=== PATIENT | male | born 1955 | race Caucasian/White ===

== ENCOUNTER 2017-08-21 09:27 | Outpatient (CLI) | payer BC ==
--- NOTE | 2017-08-21 10:22 | RAD ---
LEFT ELBOW RADIOGRAPHS 4 VIEWS: DATE: 08/21/17. PROVIDED CLINICAL HISTORY: Left elbow pain. FINDINGS: There is a 1.2 cm lucent lesion within the radial aspects of the distal humeral metaphyseal region. This demonstrates potentially partially sclerotic margins, though this is incompletely characterized radiographically. No additional lytic lesions are seen. There is a probable nondisplaced fracture i nvolving the base of the olecranon. There is overlying soft tissue swelling. There is no evidence f or elbow joint capsular distention. IMPRESSION: 1. Findings compatible with nondisplaced olecranon fracture. 2. Apparent lytic lesion within the distal humerus. Metastatic disease and myeloma could be conside red. Correlation with whole body bone scan is recommended. CODE T POS: JASPREET
== END 2017-08-21 09:28 | disposition home or self-care (01) ==
LOC: TBSIIMAG 09:27
PROVIDERS: ATTEND Psychiatry & Neurology Neurology
DX: M25.522 Pain in left elbow (principal); M89.9 Disorder of bone, unspecified

== ENCOUNTER 2017-08-22 11:35 | Emergency (ER) | payer BC | END 2017-08-22 13:20 | disposition home or self-care (01) | LOC: ERS 11:35 | DX: M70.32 Other bursitis of elbow, left elbow (principal); I10 Essential (primary) hypertension | CPT/HCPCS: 99283 ==

== ENCOUNTER 2019-07-24 19:18 | Emergency (ER) | payer MEDICARE ==
[2019-07-24] MEDS ORDERED: Morphine 4 MG/ML VIAL ONE (20:00)
== END 2019-07-24 21:40 | disposition home or self-care (01) ==
LOC: ERS 19:18
DX: S12.9XXA Fracture of neck, unspecified, initial encounter (principal); F03.90 Unspecified dementia, unspecified severity, without behavioral disturbance, psychotic disturbance, mood disturbance, and anxiety; I10 Essential (primary) hypertension; F17.210 Nicotine dependence, cigarettes, uncomplicated; W18.30XA Fall on same level, unspecified, initial encounter
CPT/HCPCS: 96374; J2270

== ENCOUNTER 2019-08-12 09:29 | Outpatient (CLI) | payer MEDICARE, BC ==
--- NOTE | 2019-08-12 13:01 | RAD ---
CERVICAL SPINE 4 VIEWS: Date: 08/12/2018 COMPARISON: None. HISTORY: Fall, pain. FINDINGS: The patient is imaged in a cervical collar. Anterior diskectomy and fusion hardware noted at C4-5/C5- 6/C6-7. There is no anterolisthesis or retrolisthesis seen. There is disc space narrowing with anteri or osteophyte formation at the C3-4 level. There is mild degenerative change at the atlantoaxial inte rspace. There is mild prevertebral soft tissue prominence anterior to the fusion plate at the C7 leve l, similar when compared to 07/24/2019 CT exam. IMPRESSION: Postoperative and degenerative change as detailed above. No displaced fracture. If there is clinical concern for radio-occult fracture, CT examination of the cervical spine advised. POS: [facility]
== END 2019-08-12 09:30 | disposition home or self-care (01) ==
LOC: TBSIIMAG 09:29
PROVIDERS: ATTEND Surgery
DX: S12.9XXA Fracture of neck, unspecified, initial encounter (principal); M47.812 Spondylosis without myelopathy or radiculopathy, cervical region; Z98.890 Other specified postprocedural states
CPT/HCPCS: 72040

== ENCOUNTER 2019-09-07 13:03 | Outpatient (CLI) | payer MEDICARE, BC ==
--- NOTE | 2019-09-07 13:47 | RAD ---
4 views of cervical spine: 09/07/2019 COMPARISON: 08/12/2019 HISTORY: Prior cervical spine surgery FINDINGS: Anterior discectomy and fusion hardware is present at the C4-5/C5-6/C6-7 level. No evidence for hardware failure. There is disc space narrowing with anterior osteophyte formation at C3-4. There is mild anterolisthesis of C3 on C4 measuring approximately [address] may be beneficial if there is clinical concern for radio occult fracture. IMPRESSION: Stable cervical spine radiographs.
== END 2019-09-07 13:04 | disposition home or self-care (01) ==
LOC: TBSIIMAG 13:03
PROVIDERS: ATTEND Surgery
DX: M54.2 Cervicalgia (principal)
CPT/HCPCS: 72040

== ENCOUNTER 2020-12-07 08:48 | Outpatient (CLI) | payer MEDICARE, BC ==
[2020-12-07 09:29] LABS: Estimated GFR-MDRD - POC Greater than 90
[2020-12-07] MEDS ORDERED: Magnevist 469MG/ML 20 ML VIAL ONE (11:22)
== END 2020-12-07 08:49 | disposition home or self-care (01) ==
LOC: BICMRI 08:48
PROVIDERS: ATTEND Psychiatry & Neurology Neurology
DX: G31.1 Senile degeneration of brain, not elsewhere classified (principal); I67.82 Cerebral ischemia
CPT/HCPCS: 70553; 82565; A9579

== ENCOUNTER 2023-02-03 19:49 | Emergency (ER) | payer MEDICARE ==
[2023-02-03 21:53] LABS: #Basophils 0.1 thou/uL (0.0-0.2); #Monocytes 0.4 thou/uL (0.11-0.59); #Neutrophils 4.3 thou/uL (1.40-6.50); %Basophils 0.9 % (0.0-1.0); %Eosinophils 0.4 % (0.0-10.0); %Lymphocytes 13.2 % (21.0-51.0); %Monocytes 7.6 % (0.0-10.0); %Neutrophils 77.7 % (42.0-75.0); Hemoglobin 14.3 g/dL (14.0-18.0); Mean Corpuscular HGB CONC 35.4 g/dL (32.0-36.0); Mean Corpuscular Hemoglobin 34.5 pg (27.0-31.0); Mean Corpuscular Volume 97.6 fl (78.0-98.0); Mean Platelet Volume 9.4 fL (7.4-10.4); Platelet Count 255 10x3/uL (130-400); RBC Distribution Width 12.9 % (11.5-14.5); Red Blood Cell (RBC) Count 4.14 mill/uL (4.70-6.10); White Blood Cell (WBC) Count 5.5 10x3/uL (4.8-10.8)
[2023-02-03 22:01] LABS: Bacteria/HPF None Seen HPF (None Seen); Bilirubin Negative (Negative); Blood, Urine Negative (Negative); CAUTI Indications for Culture Alt mental st,lethar; Clarity Clear (Clear); Glucose, Urine (Dipstick) Normal (Negative); Ketone, Urine Negative (Negative); Leukocyte Negative Leu/uL (Negative); Mucous/LPF Rare LPF (<2+); Nitrite Negative (Negative); Protein, Urine (Dipstick) Negative (Neg-Trace); RBC/HPF 0-3 HPF (0-3); Specific Gravity, Urine 1.008 (1.002-1.036); Squamous Epithelial 0-3 HPF (0-3); Urobilinogen Normal mg/dL (Less than 2); WBC/HPF 0-3 HPF (0-3); pH, Urine 5.5 (5.0-9.0)
[2023-02-03 22:04] LABS: Urine Culture Reflex No No
[2023-02-03 22:05] LABS: Amphetamine Not Detected (NotDetected); Barbiturates Screen Not Detected (NotDetected); Benzodiazepine Screen Not Detected (NotDetected); Cocaine Metabolite Screen Not Detected (NotDetected); Methadone Not Detected (NotDetected); Methamphetamine Not Detected (NotDetected); Opiate Screen Not Detected (NotDetected); Oxycodone Screen Not Detected (NotDetected); Phencyclidine (PCP) Not Detected (NotDetected); THC/Cannabinoid Screen Not Detected (NotDetected); Tricyclic Screen Not Detected (NotDetected)
[2023-02-03 22:17] LABS: ALT (SGPT) 56 U/L (8-55); AST (SGOT) 166 U/L (5-34); Acetaminophen Less than 10 mcg/mL (10.0-30.0); Albumin 3.7 g/dL (3.4-4.8); Alkaline Phosphatase 83 U/L (40-110); Anion Gap 21 mmol/L (10-20); BUN (Urea Nitrogen) 4 mg/dL (8.4-25.7); Bilirubin, Total 0.6 mg/dL (0.2-1.2); Calc. Creatinine Clearance 0 mL/min (70-130); Calcium 8.5 mg/dL (7.8-10.44); Carbon Dioxide 21 mmol/L (23-31); Chloride 106 mmol/L (98-107); Estimated GFR 100; Globulin 2.8 g/dL (2.4-3.5); Glucose 79 mg/dL (80-115); Potassium 3.4 mmol/L (3.5-5.1); Protein, Total 6.5 g/dL (5.8-8.1); Salicylate Less than 8.0 mg/dL (15.0-30.0); Sodium 145 mmol/L (136-145)
[2023-02-03 22:22] LABS: Prothrombin Time 13.2 sec (12.0-14.7)
[2023-02-03] MEDS ORDERED: Potassium Chloride 20 MEQ TAB ONE (22:37)
== END 2023-02-03 23:12 | disposition home or self-care (01) ==
LOC: ERS 19:49
DX: S09.90XA Unspecified injury of head, initial encounter (principal); S73.101A Unspecified sprain of right hip, initial encounter; F10.129 Alcohol abuse with intoxication, unspecified; W18.30XA Fall on same level, unspecified, initial encounter; Y90.6 Blood alcohol level of 120-199 mg/100 ml; Z87.891 Personal history of nicotine dependence
CPT/HCPCS: 70450; 71045; 72125; 80053; 80306; 80307; 81001; 84484; 85025; 85610; 85730; 93005; 96361; 96365; J3411

== ENCOUNTER 2023-02-09 11:32 | Inpatient (IN) | payer MEDICARE ==
[2023-02-09 12:57] LABS: #Eosinphils 0.1 thou/uL (0.0-0.7); #Monocytes 0.3 thou/uL (0.11-0.59); #Neutrophils 2.4 thou/uL (1.40-6.50); %Basophils 0.5 % (0.0-1.0); %Eosinophils 2.2 % (0.0-10.0); %Lymphocytes 32.9 % (21.0-51.0); %Monocytes 6.5 % (0.0-10.0); %Neutrophils 57.4 % (42.0-75.0); Hemoglobin 12.9 g/dL (14.0-18.0); Mean Corpuscular HGB CONC 34.9 g/dL (32.0-36.0); Mean Corpuscular Hemoglobin 34.6 pg (27.0-31.0); Mean Corpuscular Volume 99.2 fl (78.0-98.0); Mean Platelet Volume 9.8 fL (7.4-10.4); Platelet Count 199 10x3/uL (130-400); Red Blood Cell (RBC) Count 3.73 mill/uL (4.70-6.10); White Blood Cell (WBC) Count 4.1 10x3/uL (4.8-10.8)
[2023-02-09 13:27] LABS: Acetaminophen Less than 10 mcg/mL (10.0-30.0); Alcohol 255.4 mg/dL (Less than 10); Salicylate Less than 8.0 mg/dL (15.0-30.0)
[2023-02-09 13:30] LABS: ALT (SGPT) 46 U/L (8-55); AST (SGOT) 78 U/L (5-34); Albumin 3.5 g/dL (3.4-4.8); Alkaline Phosphatase 77 U/L (40-110); Anion Gap 17 mmol/L (10-20); BUN (Urea Nitrogen) 4 mg/dL (8.4-25.7); Bilirubin, Total 0.3 mg/dL (0.2-1.2); Calc. Creatinine Clearance 0 mL/min (70-130); Calcium 8.3 mg/dL (7.8-10.44); Carbon Dioxide 21 mmol/L (23-31); Chloride 105 mmol/L (98-107); Estimated GFR 101; Globulin 2.5 g/dL (2.4-3.5); Glucose 129 mg/dL (80-115); Lipase 27 U/L (8-78); Sodium 140 mmol/L (136-145)
[2023-02-09 14:17] LABS: Amphetamine Not Detected (NotDetected); Barbiturates Screen Not Detected (NotDetected); Benzodiazepine Screen Not Detected (NotDetected); Cocaine Metabolite Screen Not Detected (NotDetected); Methadone Not Detected (NotDetected); Methamphetamine Not Detected (NotDetected); Opiate Screen Not Detected (NotDetected); Oxycodone Screen Not Detected (NotDetected); Phencyclidine (PCP) Not Detected (NotDetected); THC/Cannabinoid Screen Not Detected (NotDetected); Tricyclic Screen Not Detected (NotDetected)
[2023-02-09] MEDS ORDERED: Thiamine HCl 200 MG/2 ML VIAL SLOW IVP SCH (14:30)
[2023-02-09 14:39] LABS: Bacteria/HPF None Seen HPF (None Seen); Bilirubin Negative (Negative); Blood, Urine Negative (Negative); CAUTI Indications for Culture Dysuria,urgency,freq; Clarity Clear (Clear); Glucose, Urine (Dipstick) Normal (Negative); Ketone, Urine Negative (Negative); Leukocyte Negative Leu/uL (Negative); Nitrite Negative (Negative); Protein, Urine (Dipstick) Negative (Neg-Trace); RBC/HPF None Seen HPF (0-3); Specific Gravity, Urine 1.004 (1.002-1.036); Squamous Epithelial None Seen HPF (0-3); Urobilinogen Normal mg/dL (Less than 2); WBC/HPF None Seen HPF (0-3)
[2023-02-09 14:41] LABS: Urine Culture Reflex No No
[2023-02-09] MEDS ORDERED: Potassium Chloride 20 MEQ TAB ONE (15:06)
[2023-02-09 15:10] LABS: Magnesium 1.9 mg/dL (1.6-2.6)
[2023-02-09] MEDS ORDERED: Ondansetron PF 4 MG/2 ML Vial IVP PRN (15:12)
[2023-02-09] MEDS ORDERED: Calcium Carbonate 500 MG ChewTAB PO PRN (15:12)
[2023-02-09] MEDS ORDERED: Senokot S 8.6-50 MG TAB PO PRN (15:12)
[2023-02-09] MEDS ORDERED: Electrolyte Replacement Protocol 1 EACH FS SCH (15:15)
[2023-02-09] MEDS ORDERED: chlordiazePOXIDE HCl 25 MG CAP ONE (15:21)
[2023-02-09] MEDS ORDERED: chlordiazePOXIDE HCl 25 MG CAP PO SCH (15:30)
[2023-02-09] MEDS ORDERED: Electrolyte Replacement Protocol FS PRN (16:30)
[2023-02-09] MEDS ORDERED: Magnesium 2 GM/50 ML(in water) 2 GM in Premix Bag 1 BAG IVPB SCH (16:30)
[2023-02-09 20:03] VITALS: BMI 17.8
[2023-02-09] MEDS: Famotidine/PF 20 mg/2ml Vial SLOW IVP SCH (20:10)
[2023-02-09] MEDS: Montelukast Sodium 10 mg Tablet PO SCH (20:10)
[2023-02-09] MEDS: chlordiazePOXIDE HCl 5 MG CAP PO SCH ×2 (21:19→21:38)
[2023-02-09] MEDS ORDERED: Lorazepam 2 MG/ML VIAL ONE (21:34)
[2023-02-09] MEDS ORDERED: Lorazepam 2 MG/ML VIAL SLOW IVP SCH (21:45)
[2023-02-10] MEDS: Lorazepam 2 MG/ML VIAL SLOW IVP PRN ×4 (01:18→21:13)
[2023-02-10 06:52] LABS: #Eosinphils 0.1 thou/uL (0.0-0.7); #Monocytes 0.5 thou/uL (0.11-0.59); #Neutrophils 5.9 thou/uL (1.40-6.50); %Basophils 0.4 % (0.0-1.0); %Eosinophils 0.8 % (0.0-10.0); %Lymphocytes 9.9 % (21.0-51.0); %Monocytes 6.3 % (0.0-10.0); %Neutrophils 82.2 % (42.0-75.0); Hematocrit 36.4 % (42.0-52.0); Mean Corpuscular HGB CONC 35.7 g/dL (32.0-36.0); Mean Corpuscular Hemoglobin 34.8 pg (27.0-31.0); Mean Corpuscular Volume 97.3 fl (78.0-98.0); Mean Platelet Volume 10.1 fL (7.4-10.4); Platelet Count 185 10x3/uL (130-400); RBC Distribution Width 12.9 % (11.5-14.5); Red Blood Cell (RBC) Count 3.74 mill/uL (4.70-6.10); White Blood Cell (WBC) Count 7.2 10x3/uL (4.8-10.8)
[2023-02-10 07:17] LABS: Bilirubin, Direct 0.3 mg/dL (0.1-0.3); Iron 109 ug/dL (65-175); Iron 111 ug/dL (65-175); Iron Binding Capacity, Total 121 mcg/dL (261-462); Iron Binding Capacity, Total 135 mcg/dL (261-462)
[2023-02-10 07:19] LABS: ALT (SGPT) 57 U/L (8-55); AST (SGOT) 156 U/L (5-34); Albumin 3.4 g/dL (3.4-4.8); Alkaline Phosphatase 87 U/L (40-110); Anion Gap 16 mmol/L (10-20); BUN (Urea Nitrogen) 4 mg/dL (8.4-25.7); Bilirubin, Total 0.5 mg/dL (0.2-1.2); Calc. Creatinine Clearance 83 mL/min (70-130); Calcium 7.7 mg/dL (7.8-10.44); Carbon Dioxide 22 mmol/L (23-31); Chloride 104 mmol/L (98-107); Estimated GFR 100; Globulin 2.4 g/dL (2.4-3.5); Glucose 94 mg/dL (80-115); Magnesium 1.8 mg/dL (1.6-2.6); Potassium 3.3 mmol/L (3.5-5.1); Protein, Total 5.8 g/dL (5.8-8.1); Sodium 139 mmol/L (136-145)
[2023-02-10] MEDS ORDERED: Magnesium 2 GM/50 ML(in water) 2 GM in Premix Bag 1 BAG IVPB SCH (08:00)
[2023-02-10] MEDS ORDERED: PHOS-NAK 1 PKT PACK PO SCH (08:00)
[2023-02-10] MEDS ORDERED: Potassium Chloride 20 MEQ TAB PO SCH (08:00)
[2023-02-10] MEDS: Aspirin 81 mg Enteric Coated Tablet PO SCH (09:01)
[2023-02-10] MEDS: Folic Acid 1 MG TAB PO SCH (09:01)
[2023-02-10] MEDS: Lisinopril 5 MG TAB PO SCH (09:01)
[2023-02-10] MEDS: Famotidine/PF 20 mg/2ml Vial SLOW IVP SCH ×2 (09:01→20:22)
[2023-02-10] MEDS: Multivit, Therapeutic 1 TAB PO SCH (10:33)
[2023-02-10] MEDS: chlordiazePOXIDE HCl 5 MG CAP PO SCH (10:34)
[2023-02-10] MEDS ORDERED: Thiamine HCl 200 MG/2 ML VIAL SLOW IVP SCH (14:00)
[2023-02-10] MEDS: chlordiazePOXIDE HCl 25 MG CAP PO SCH ×2 (14:42→20:22)
[2023-02-10] MEDS: Montelukast Sodium 10 mg Tablet PO SCH (20:22)
[2023-02-11] MEDS: Lorazepam 2 MG/ML VIAL SLOW IVP PRN ×3 (01:11→09:18)
[2023-02-11 06:23] LABS: #Basophils 0.1 thou/uL (0.0-0.2); #Eosinphils 0.1 thou/uL (0.0-0.7); #Monocytes 0.5 thou/uL (0.11-0.59); %Basophils 0.9 % (0.0-1.0); %Eosinophils 2.2 % (0.0-10.0); %Lymphocytes 15.1 % (21.0-51.0); %Neutrophils 72.4 % (42.0-75.0); Hematocrit 39.9 % (42.0-52.0); Mean Corpuscular HGB CONC 32.6 g/dL (32.0-36.0); Mean Corpuscular Hemoglobin 34.4 pg (27.0-31.0); Mean Platelet Volume 10.8 fL (7.4-10.4); Platelet Count 154 10x3/uL (130-400); RBC Distribution Width 13.3 % (11.5-14.5); Red Blood Cell (RBC) Count 3.78 mill/uL (4.70-6.10); White Blood Cell (WBC) Count 5.6 10x3/uL (4.8-10.8)
[2023-02-11 06:34] LABS: Mean Corpuscular Volume 105.6 fl (78.0-98.0)
[2023-02-11 06:44] LABS: Anion Gap 12 mmol/L (10-20); BUN (Urea Nitrogen) Less than 4 mg/dL (8.4-25.7); Calc. Creatinine Clearance 95 mL/min (70-130); Calcium 8.5 mg/dL (7.8-10.44); Carbon Dioxide 25 mmol/L (23-31); Chloride 105 mmol/L (98-107); Estimated GFR 104; Glucose 93 mg/dL (80-115); Magnesium 1.9 mg/dL (1.6-2.6); Phosphorus 2.2 mg/dL (2.3-4.7); Potassium 3.4 mmol/L (3.5-5.1); Sodium 139 mmol/L (136-145)
[2023-02-11] MEDS ORDERED: Potassium Chloride 20 MEQ TAB PO SCH (08:00)
[2023-02-11] MEDS ORDERED: Magnesium 2 GM/50 ML(in water) 2 GM in Premix Bag 1 BAG IVPB SCH (08:00)
[2023-02-11] MEDS: Folic Acid 1 MG TAB PO SCH (09:14)
[2023-02-11] MEDS: Aspirin 81 mg Enteric Coated Tablet PO SCH (09:14)
[2023-02-11] MEDS: Famotidine/PF 20 mg/2ml Vial SLOW IVP SCH ×2 (09:14→20:16)
[2023-02-11] MEDS: Multivit, Therapeutic 1 TAB PO SCH (09:14)
[2023-02-11] MEDS: chlordiazePOXIDE HCl 25 MG CAP PO SCH ×3 (09:15→20:16)
[2023-02-11] MEDS: Lisinopril 5 MG TAB PO SCH (09:15)
[2023-02-11] MEDS: Lorazepam 1 MG TAB PO PRN (14:07)
[2023-02-11] MEDS: Montelukast Sodium 10 mg Tablet PO SCH (20:16)
[2023-02-12 06:43] LABS: ALT (SGPT) 46 U/L (8-55); AST (SGOT) 87 U/L (5-34); Albumin 3.2 g/dL (3.4-4.8); Alkaline Phosphatase 96 U/L (40-110); Anion Gap 16 mmol/L (10-20); BUN (Urea Nitrogen) 4 mg/dL (8.4-25.7); Bilirubin, Total 0.8 mg/dL (0.2-1.2); Calc. Creatinine Clearance 96 mL/min (70-130); Calcium 8.7 mg/dL (7.8-10.44); Carbon Dioxide 18 mmol/L (23-31); Chloride 107 mmol/L (98-107); Estimated GFR 104; Globulin 2.6 g/dL (2.4-3.5); Glucose 89 mg/dL (80-115); Magnesium 2.1 mg/dL (1.6-2.6); Phosphorus 4.7 mg/dL (2.3-4.7); Potassium 3.9 mmol/L (3.5-5.1); Protein, Total 5.8 g/dL (5.8-8.1); Sodium 137 mmol/L (136-145)
[2023-02-12] MEDS: Aspirin 81 mg Enteric Coated Tablet PO SCH (08:40)
[2023-02-12] MEDS: Multivit, Therapeutic 1 TAB PO SCH (08:40)
[2023-02-12] MEDS: Folic Acid 1 MG TAB PO SCH (08:40)
[2023-02-12] MEDS: Lisinopril 5 MG TAB PO SCH (08:40)
[2023-02-12] MEDS: chlordiazePOXIDE HCl 25 MG CAP PO SCH ×2 (08:40→14:39)
[2023-02-12] MEDS: Famotidine/PF 20 mg/2ml Vial SLOW IVP SCH ×2 (08:41→20:33)
[2023-02-12] MEDS: Thiamine 100 MG TAB PO SCH (14:39)
[2023-02-12] MEDS: Lorazepam 1 MG TAB PO PRN (14:39)
[2023-02-12] MEDS: chlordiazePOXIDE HCl 5 MG CAP PO SCH ×2 (15:39→20:33)
[2023-02-12] MEDS: Montelukast Sodium 10 mg Tablet PO SCH (20:33)
[2023-02-12] MEDS: Acetaminophen 325 MG TAB PO PRN (22:04)
[2023-02-12] MEDS: Lorazepam 2 MG/ML VIAL SLOW IVP PRN (22:58)
[2023-02-13] MEDS: Multivit, Therapeutic 1 TAB PO SCH (08:52)
[2023-02-13] MEDS: Aspirin 81 mg Enteric Coated Tablet PO SCH (08:52)
[2023-02-13] MEDS: Lisinopril 5 MG TAB PO SCH (08:52)
[2023-02-13] MEDS: Folic Acid 1 MG TAB PO SCH (08:52)
[2023-02-13] MEDS: chlordiazePOXIDE HCl 5 MG CAP PO SCH ×3 (08:52→20:06)
[2023-02-13] MEDS: Famotidine/PF 20 mg/2ml Vial SLOW IVP SCH ×2 (08:52→20:07)
[2023-02-13] MEDS: Thiamine 100 MG TAB PO SCH (13:02)
[2023-02-13] MEDS: QUEtiapine 25 MG TAB PO SCH (20:07)
[2023-02-13] MEDS: Montelukast Sodium 10 mg Tablet PO SCH (20:07)
[2023-02-14] MEDS: chlordiazePOXIDE HCl 5 MG CAP PO SCH ×2 (08:06→16:14)
[2023-02-14] MEDS: Famotidine/PF 20 mg/2ml Vial SLOW IVP SCH ×2 (08:06→22:33)
[2023-02-14] MEDS: Aspirin 81 mg Enteric Coated Tablet PO SCH (08:06)
[2023-02-14] MEDS: Lisinopril 5 MG TAB PO SCH (08:07)
[2023-02-14] MEDS: Multivit, Therapeutic 1 TAB PO SCH (08:07)
[2023-02-14] MEDS: Folic Acid 1 MG TAB PO SCH (08:07)
[2023-02-14] MEDS: Thiamine 100 MG TAB PO SCH (16:14)
[2023-02-14] MEDS: Montelukast Sodium 10 mg Tablet PO SCH (22:33)
[2023-02-14] MEDS: QUEtiapine 25 MG TAB PO SCH (22:33)
[2023-02-15] MEDS: chlordiazePOXIDE HCl 5 MG CAP PO SCH ×2 (08:45→15:52)
[2023-02-15] MEDS: Lisinopril 5 MG TAB PO SCH (08:46)
[2023-02-15] MEDS: Aspirin 81 mg Enteric Coated Tablet PO SCH (08:46)
[2023-02-15] MEDS: Famotidine/PF 20 mg/2ml Vial SLOW IVP SCH ×2 (08:46→22:15)
[2023-02-15] MEDS: Folic Acid 1 MG TAB PO SCH (08:46)
[2023-02-15] MEDS: Multivit, Therapeutic 1 TAB PO SCH (08:46)
[2023-02-15] MEDS ORDERED: Lorazepam 2 MG/ML VIAL SLOW IVP PRN (13:23)
[2023-02-15] MEDS: Thiamine 100 MG TAB PO SCH (15:52)
[2023-02-15] MEDS: QUEtiapine 25 MG TAB PO SCH (22:14)
[2023-02-15] MEDS: Montelukast Sodium 10 mg Tablet PO SCH (22:14)
[2023-02-16] MEDS: Lisinopril 5 MG TAB PO SCH (09:05)
[2023-02-16] MEDS: Multivit, Therapeutic 1 TAB PO SCH (09:05)
[2023-02-16] MEDS: Aspirin 81 mg Enteric Coated Tablet PO SCH (09:05)
[2023-02-16] MEDS: Folic Acid 1 MG TAB PO SCH (09:05)
[2023-02-16] MEDS: Famotidine/PF 20 mg/2ml Vial SLOW IVP SCH (09:05)
[2023-02-16] MEDS: Thiamine 100 MG TAB PO SCH (14:03)
[2023-02-16] MEDS: QUEtiapine 25 MG TAB PO SCH (21:01)
[2023-02-16] MEDS: Montelukast Sodium 10 mg Tablet PO SCH (21:02)
[2023-02-16] MEDS: Acetaminophen 325 MG TAB PO PRN (21:23)
[2023-02-17] MEDS: Lisinopril 5 MG TAB PO SCH (08:37)
[2023-02-17] MEDS: Folic Acid 1 MG TAB PO SCH (08:37)
[2023-02-17] MEDS: Multivit, Therapeutic 1 TAB PO SCH (08:38)
[2023-02-17] MEDS: Aspirin 81 mg Enteric Coated Tablet PO SCH (08:38)
[2023-02-17 10:35] LABS: #Eosinphils 0.3 thou/uL (0.0-0.7); #Monocytes 0.6 thou/uL (0.11-0.59); #Neutrophils 3.8 thou/uL (1.40-6.50); %Basophils 0.3 % (0.0-1.0); %Eosinophils 4.6 % (0.0-10.0); %Lymphocytes 19.1 % (21.0-51.0); %Monocytes 10.8 % (0.0-10.0); %Neutrophils 64.9 % (42.0-75.0); Hematocrit 35.5 % (42.0-52.0); Hemoglobin 11.7 g/dL (14.0-18.0); Mean Corpuscular Volume 103.2 fl (78.0-98.0); Platelet Count 244 10x3/uL (130-400); RBC Distribution Width 13.1 % (11.5-14.5); Red Blood Cell (RBC) Count 3.44 mill/uL (4.70-6.10); White Blood Cell (WBC) Count 5.8 10x3/uL (4.8-10.8)
[2023-02-17 11:17] LABS: Anion Gap 12 mmol/L (10-20); BUN (Urea Nitrogen) 7 mg/dL (8.4-25.7); Bilirubin, Total 0.3 mg/dL (0.2-1.2); Calc. Creatinine Clearance 84 mL/min (70-130); Carbon Dioxide 26 mmol/L (23-31); Chloride 104 mmol/L (98-107); Estimated GFR 100; Glucose 92 mg/dL (80-115); Potassium 3.6 mmol/L (3.5-5.1); Protein, Total 5.6 g/dL (5.8-8.1); Sodium 138 mmol/L (136-145)
[2023-02-17 11:18] LABS: ALT (SGPT) 54 U/L (8-55); AST (SGOT) 71 U/L (5-34); Albumin 3.2 g/dL (3.4-4.8); Alkaline Phosphatase 68 U/L (40-110); Globulin 2.4 g/dL (2.4-3.5)
[2023-02-17] MEDS: Thiamine 100 MG TAB PO SCH (14:15)
[2023-02-17] MEDS: QUEtiapine 25 MG TAB PO SCH (20:57)
[2023-02-17] MEDS: Montelukast Sodium 10 mg Tablet PO SCH (20:57)
[2023-02-17] MEDS: Acetaminophen 325 MG TAB PO PRN (21:06)
[2023-02-18] MEDS: Folic Acid 1 MG TAB PO SCH (09:04)
[2023-02-18] MEDS: Lisinopril 5 MG TAB PO SCH (09:04)
[2023-02-18] MEDS: Aspirin 81 mg Enteric Coated Tablet PO SCH (09:04)
[2023-02-18] MEDS: Multivit, Therapeutic 1 TAB PO SCH (09:05)
[2023-02-18] MEDS: Thiamine 100 MG TAB PO SCH (13:32)
[2023-02-18] MEDS: Melatonin 3 MG TAB PO PRN (21:23)
[2023-02-18] MEDS: Acetaminophen 325 MG TAB PO PRN (21:24)
[2023-02-18] MEDS: Montelukast Sodium 10 mg Tablet PO SCH (21:24)
[2023-02-18] MEDS: QUEtiapine 25 MG TAB PO SCH (21:24)
[2023-02-19 06:48] LABS: Hemoglobin 11.1 g/dL (14.0-18.0); Red Blood Cell (RBC) Count 3.21 mill/uL (4.70-6.10); White Blood Cell (WBC) Count 3.3 10x3/uL (4.8-10.8)
[2023-02-19 06:49] LABS: #Eosinphils 0.2 thou/uL (0.0-0.7); #Monocytes 0.6 thou/uL (0.11-0.59); #Neutrophils 1.5 thou/uL (1.40-6.50); %Basophils 0.6 % (0.0-1.0); %Eosinophils 5.4 % (0.0-10.0); %Lymphocytes 28.7 % (21.0-51.0); %Monocytes 19.2 % (0.0-10.0); %Neutrophils 45.8 % (42.0-75.0); Hematocrit 33.1 % (42.0-52.0); Mean Corpuscular HGB CONC 33.5 g/dL (32.0-36.0); Mean Corpuscular Hemoglobin 34.6 pg (27.0-31.0); Mean Corpuscular Volume 103.1 fl (78.0-98.0); Mean Platelet Volume 10.4 fL (7.4-10.4); Platelet Count 254 10x3/uL (130-400)
[2023-02-19 07:00] LABS: Anion Gap 9 mmol/L (10-20); BUN (Urea Nitrogen) 11 mg/dL (8.4-25.7); Calc. Creatinine Clearance 82 mL/min (70-130); Carbon Dioxide 29 mmol/L (23-31); Chloride 106 mmol/L (98-107); Sodium 141 mmol/L (136-145)
[2023-02-19 07:01] LABS: Calcium 8.8 mg/dL (7.8-10.44); Estimated GFR 99; Glucose 104 mg/dL (80-115)
[2023-02-19] MEDS ORDERED: Potassium Chloride 20 MEQ TAB PO SCH (08:00)
[2023-02-19] MEDS: Aspirin 81 mg Enteric Coated Tablet PO SCH (10:04)
[2023-02-19] MEDS: Lisinopril 5 MG TAB PO SCH (10:05)
[2023-02-19] MEDS: Folic Acid 1 MG TAB PO SCH (10:05)
[2023-02-19] MEDS: Multivit, Therapeutic 1 TAB PO SCH (10:05)
[2023-02-19] MEDS: Thiamine 100 MG TAB PO SCH (15:05)
[2023-02-19] MEDS: Acetaminophen 325 MG TAB PO PRN (15:35)
[2023-02-19] MEDS: Montelukast Sodium 10 mg Tablet PO SCH (22:29)
[2023-02-19] MEDS: QUEtiapine 25 MG TAB PO SCH (22:29)
[2023-02-20 06:05] LABS: Hematocrit 32.1 % (42.0-52.0); Hemoglobin 10.6 g/dL (14.0-18.0); Manual Diff?? YES; Mean Corpuscular Hemoglobin 34.5 pg (27.0-31.0); Mean Corpuscular Volume 104.6 fl (78.0-98.0); Mean Platelet Volume 10.2 fL (7.4-10.4); Platelet Count 276 10x3/uL (130-400); RBC Distribution Width 13.1 % (11.5-14.5); Red Blood Cell (RBC) Count 3.07 mill/uL (4.70-6.10); White Blood Cell (WBC) Count 4.2 10x3/uL (4.8-10.8)
[2023-02-20 06:27] LABS: Anion Gap 13 mmol/L (10-20); BUN (Urea Nitrogen) 10 mg/dL (8.4-25.7); Calc. Creatinine Clearance 87 mL/min (70-130); Calcium 9.1 mg/dL (7.8-10.44); Carbon Dioxide 24 mmol/L (23-31); Chloride 106 mmol/L (98-107); Estimated GFR 101; Glucose 96 mg/dL (80-115); Potassium 3.7 mmol/L (3.5-5.1); Sodium 139 mmol/L (136-145)
[2023-02-20 06:56] LABS: Delete Auto Diff?? YES
[2023-02-20 09:12] LABS: Band 3 % (5-11); CellaVision Operator ID LAB.GE; Eosinophils 7 % (0-10); Large Platelets 14.1 % (0-5); Lymphocytes 29 % (21-51); Macrocytosis SLIGHT = 6-15 cells HPF (0-5); Monocytes 10 % (0-10); Neutrophil 48 % (42-75); Platelet Adequacy Comment Platelets Normal; Polychromasia SLIGHT = 2-3 cells HPF (0-2); Reactive Lymphocytes 2 % (0-10); Total Cell Count 99
[2023-02-20] MEDS: Lisinopril 5 MG TAB PO SCH (09:21)
[2023-02-20] MEDS: Aspirin 81 mg Enteric Coated Tablet PO SCH (09:21)
[2023-02-20] MEDS: Folic Acid 1 MG TAB PO SCH (09:21)
[2023-02-20] MEDS: Multivit, Therapeutic 1 TAB PO SCH (09:21)
[2023-02-20] MEDS: Thiamine 100 MG TAB PO SCH ×2 (14:13→14:37)
[2023-02-20] MEDS: Acetaminophen 325 MG TAB PO PRN (17:37)
[2023-02-20] MEDS: Montelukast Sodium 10 mg Tablet PO SCH (20:02)
[2023-02-20] MEDS: QUEtiapine 25 MG TAB PO SCH (20:02)
[2023-02-21 07:28] LABS: #Eosinphils 0.5 thou/uL (0.0-0.7); #Monocytes 0.7 thou/uL (0.11-0.59); #Neutrophils 1.9 thou/uL (1.40-6.50); %Basophils 0.7 % (0.0-1.0); %Eosinophils 10.7 % (0.0-10.0); %Monocytes 16.6 % (0.0-10.0); %Neutrophils 43.3 % (42.0-75.0); Hematocrit 32.3 % (42.0-52.0); Hemoglobin 10.6 g/dL (14.0-18.0); Mean Corpuscular HGB CONC 32.8 g/dL (32.0-36.0); Mean Corpuscular Hemoglobin 34.6 pg (27.0-31.0); Mean Corpuscular Volume 105.6 fl (78.0-98.0); Mean Platelet Volume 10.1 fL (7.4-10.4); Platelet Count 298 10x3/uL (130-400); RBC Distribution Width 13.1 % (11.5-14.5); Red Blood Cell (RBC) Count 3.06 mill/uL (4.70-6.10); White Blood Cell (WBC) Count 4.3 10x3/uL (4.8-10.8)
[2023-02-21 08:19] LABS: Anion Gap 13 mmol/L (10-20); BUN (Urea Nitrogen) 8 mg/dL (8.4-25.7); Calc. Creatinine Clearance 80 mL/min (70-130); Calcium 9.1 mg/dL (7.8-10.44); Carbon Dioxide 29 mmol/L (23-31); Chloride 107 mmol/L (98-107); Estimated GFR 98; Glucose 88 mg/dL (80-115); Potassium 3.6 mmol/L (3.5-5.1); Sodium 145 mmol/L (136-145)
[2023-02-21] MEDS: Folic Acid 1 MG TAB PO SCH (08:29)
[2023-02-21] MEDS: Lisinopril 5 MG TAB PO SCH (08:29)
[2023-02-21] MEDS: Multivit, Therapeutic 1 TAB PO SCH (08:29)
[2023-02-21] MEDS: Aspirin 81 mg Enteric Coated Tablet PO SCH (08:29)
[2023-02-21] MEDS: Thiamine 100 MG TAB PO SCH (14:19)
[2023-02-21] MEDS: Montelukast Sodium 10 mg Tablet PO SCH (20:28)
[2023-02-21] MEDS: QUEtiapine 25 MG TAB PO SCH (20:29)
[2023-02-22 06:01] LABS: #Eosinphils 0.5 thou/uL (0.0-0.7); #Monocytes 0.8 thou/uL (0.11-0.59); #Neutrophils 3.2 thou/uL (1.40-6.50); %Basophils 0.7 % (0.0-1.0); %Eosinophils 8.4 % (0.0-10.0); %Lymphocytes 23.2 % (21.0-51.0); %Monocytes 13.1 % (0.0-10.0); %Neutrophils 54.1 % (42.0-75.0); Hematocrit 31.1 % (42.0-52.0); Hemoglobin 10.3 g/dL (14.0-18.0); Mean Corpuscular HGB CONC 33.1 g/dL (32.0-36.0); Mean Corpuscular Hemoglobin 33.8 pg (27.0-31.0); Platelet Count 338 10x3/uL (130-400); Red Blood Cell (RBC) Count 3.05 mill/uL (4.70-6.10)
[2023-02-22 06:29] LABS: Anion Gap 10 mmol/L (10-20); BUN (Urea Nitrogen) 10 mg/dL (8.4-25.7); Calc. Creatinine Clearance 91 mL/min (70-130); Calcium 8.9 mg/dL (7.8-10.44); Carbon Dioxide 28 mmol/L (23-31); Chloride 107 mmol/L (98-107); Estimated GFR 102; Glucose 93 mg/dL (80-115); Potassium 3.2 mmol/L (3.5-5.1); Sodium 142 mmol/L (136-145)
[2023-02-22] MEDS ORDERED: Potassium Chloride 20 MEQ TAB PO SCH (08:00)
[2023-02-22] MEDS: Folic Acid 1 MG TAB PO SCH (09:06)
[2023-02-22] MEDS: Multivit, Therapeutic 1 TAB PO SCH (09:06)
[2023-02-22] MEDS: Lisinopril 5 MG TAB PO SCH (09:06)
[2023-02-22] MEDS: Aspirin 81 mg Enteric Coated Tablet PO SCH (09:06)
[2023-02-22] MEDS ORDERED: Potassium Bicarbonate/Cit Ac 20 MEQ TAB PO SCH (09:15)
[2023-02-22] MEDS: Thiamine 100 MG TAB PO SCH (14:21)
[2023-02-22] MEDS ORDERED: Lorazepam 1 MG TAB PO SCH (15:30)
[2023-02-22] MEDS: QUEtiapine 25 MG TAB PO SCH (19:47)
[2023-02-22] MEDS: Montelukast Sodium 10 mg Tablet PO SCH (19:48)
[2023-02-23 06:26] LABS: #Basophils 0.1 thou/uL (0.0-0.2); #Eosinphils 0.6 thou/uL (0.0-0.7); #Monocytes 0.8 thou/uL (0.11-0.59); #Neutrophils 3.2 thou/uL (1.40-6.50); %Basophils 0.8 % (0.0-1.0); %Eosinophils 9.6 % (0.0-10.0); %Lymphocytes 25.6 % (21.0-51.0); %Monocytes 12.4 % (0.0-10.0); %Neutrophils 50.7 % (42.0-75.0); Hematocrit 30.7 % (42.0-52.0); Hemoglobin 10.1 g/dL (14.0-18.0); Mean Corpuscular HGB CONC 32.9 g/dL (32.0-36.0); Mean Corpuscular Hemoglobin 34.4 pg (27.0-31.0); Mean Corpuscular Volume 104.4 fl (78.0-98.0); Mean Platelet Volume 9.8 fL (7.4-10.4); Platelet Count 356 10x3/uL (130-400); Red Blood Cell (RBC) Count 2.94 mill/uL (4.70-6.10); White Blood Cell (WBC) Count 6.4 10x3/uL (4.8-10.8)
[2023-02-23 06:56] LABS: Anion Gap 12 mmol/L (10-20); BUN (Urea Nitrogen) 8 mg/dL (8.4-25.7); Calc. Creatinine Clearance 88 mL/min (70-130); Calcium 8.6 mg/dL (7.8-10.44); Carbon Dioxide 26 mmol/L (23-31); Chloride 107 mmol/L (98-107); Estimated GFR 101; Glucose 92 mg/dL (80-115); Potassium 3.7 mmol/L (3.5-5.1); Sodium 141 mmol/L (136-145)
[2023-02-23] MEDS: Lisinopril 5 MG TAB PO SCH (08:50)
[2023-02-23] MEDS: Folic Acid 1 MG TAB PO SCH (08:50)
[2023-02-23] MEDS: Multivit, Therapeutic 1 TAB PO SCH (08:50)
[2023-02-23] MEDS: Aspirin 81 mg Enteric Coated Tablet PO SCH (08:50)
[2023-02-23] MEDS: Thiamine 100 MG TAB PO SCH (14:42)
[2023-02-23] MEDS ORDERED: Haloperidol Lactate 5 MG/ML VIAL ONE (17:14)
[2023-02-23] MEDS ORDERED: Haloperidol Lactate 5 MG/ML VIAL IM SCH (17:30)
[2023-02-23] MEDS: Montelukast Sodium 10 mg Tablet PO SCH (20:42)
[2023-02-23] MEDS: QUEtiapine 25 MG TAB PO SCH (20:42)
[2023-02-24] MEDS: Acetaminophen 325 MG TAB PO PRN (02:27)
[2023-02-24] MEDS: Aspirin 81 mg Enteric Coated Tablet PO SCH (09:23)
[2023-02-24] MEDS: Multivit, Therapeutic 1 TAB PO SCH (09:23)
[2023-02-24] MEDS: Lisinopril 5 MG TAB PO SCH (09:23)
[2023-02-24] MEDS: Folic Acid 1 MG TAB PO SCH (09:23)
[2023-02-24 12:08] LABS: #Basophils 0.1 thou/uL (0.0-0.2); #Eosinphils 0.2 thou/uL (0.0-0.7); #Monocytes 0.7 thou/uL (0.11-0.59); #Neutrophils 5.6 thou/uL (1.40-6.50); %Basophils 0.8 % (0.0-1.0); %Eosinophils 2.8 % (0.0-10.0); %Lymphocytes 15.3 % (21.0-51.0); %Monocytes 8.4 % (0.0-10.0); %Neutrophils 72.2 % (42.0-75.0); Hematocrit 36.1 % (42.0-52.0); Hemoglobin 11.6 g/dL (14.0-18.0); Mean Corpuscular HGB CONC 32.1 g/dL (32.0-36.0); Mean Corpuscular Hemoglobin 33.9 pg (27.0-31.0); Mean Corpuscular Volume 105.6 fl (78.0-98.0); Platelet Count 458 10x3/uL (130-400); RBC Distribution Width 13.1 % (11.5-14.5); Red Blood Cell (RBC) Count 3.42 mill/uL (4.70-6.10); White Blood Cell (WBC) Count 7.7 10x3/uL (4.8-10.8)
[2023-02-24 12:30] LABS: ALT (SGPT) 42 U/L (8-55); AST (SGOT) 37 U/L (5-34); Albumin 3.9 g/dL (3.4-4.8); Alkaline Phosphatase 63 U/L (40-110); Anion Gap 8 mmol/L (10-20); BUN (Urea Nitrogen) 9 mg/dL (8.4-25.7); Bilirubin, Total 0.2 mg/dL (0.2-1.2); Calc. Creatinine Clearance 85 mL/min (70-130); Calcium 9.2 mg/dL (7.8-10.44); Carbon Dioxide 27 mmol/L (23-31); Chloride 105 mmol/L (98-107); Estimated GFR 100; Globulin 2.9 g/dL (2.4-3.5); Glucose 102 mg/dL (80-115); Potassium 3.9 mmol/L (3.5-5.1); Protein, Total 6.8 g/dL (5.8-8.1); Sodium 136 mmol/L (136-145)
[2023-02-24] MEDS: Thiamine 100 MG TAB PO SCH (15:05)
[2023-02-24] MEDS: Montelukast Sodium 10 mg Tablet PO SCH (21:43)
[2023-02-24] MEDS: QUEtiapine 25 MG TAB PO SCH (21:43)
[2023-02-25 06:23] LABS: #Basophils 0.1 thou/uL (0.0-0.2); #Eosinphils 0.4 thou/uL (0.0-0.7); #Monocytes 0.8 thou/uL (0.11-0.59); #Neutrophils 4.1 thou/uL (1.40-6.50); %Basophils 0.9 % (0.0-1.0); %Eosinophils 5.4 % (0.0-10.0); %Lymphocytes 19.8 % (21.0-51.0); %Monocytes 11.4 % (0.0-10.0); %Neutrophils 61.9 % (42.0-75.0); Hematocrit 30.8 % (42.0-52.0); Mean Corpuscular HGB CONC 32.5 g/dL (32.0-36.0); Mean Corpuscular Hemoglobin 33.7 pg (27.0-31.0); Mean Corpuscular Volume 103.7 fl (78.0-98.0); Mean Platelet Volume 9.9 fL (7.4-10.4); Platelet Count 405 10x3/uL (130-400); RBC Distribution Width 13.1 % (11.5-14.5); Red Blood Cell (RBC) Count 2.97 mill/uL (4.70-6.10); White Blood Cell (WBC) Count 6.7 10x3/uL (4.8-10.8)
[2023-02-25 06:49] LABS: ALT (SGPT) 31 U/L (8-55); AST (SGOT) 24 U/L (5-34); Albumin 3.2 g/dL (3.4-4.8); Alkaline Phosphatase 52 U/L (40-110); Anion Gap 11 mmol/L (10-20); BUN (Urea Nitrogen) 10 mg/dL (8.4-25.7); Bilirubin, Total 0.2 mg/dL (0.2-1.2); Calc. Creatinine Clearance 88 mL/min (70-130); Calcium 8.7 mg/dL (7.8-10.44); Carbon Dioxide 27 mmol/L (23-31); Chloride 106 mmol/L (98-107); Estimated GFR 101; Globulin 2.3 g/dL (2.4-3.5); Glucose 89 mg/dL (80-115); Potassium 3.1 mmol/L (3.5-5.1); Protein, Total 5.5 g/dL (5.8-8.1); Sodium 141 mmol/L (136-145)
[2023-02-25] MEDS ORDERED: Potassium Chloride 20 MEQ TAB PO SCH (08:00)
[2023-02-25] MEDS: Lisinopril 5 MG TAB PO SCH (08:31)
[2023-02-25] MEDS: Multivit, Therapeutic 1 TAB PO SCH (08:31)
[2023-02-25] MEDS: Folic Acid 1 MG TAB PO SCH (08:31)
[2023-02-25] MEDS: Aspirin 81 mg Enteric Coated Tablet PO SCH (08:31)
[2023-02-25] MEDS: Thiamine 100 MG TAB PO SCH (13:25)
[2023-02-25] MEDS: Montelukast Sodium 10 mg Tablet PO SCH (21:01)
[2023-02-25] MEDS: Melatonin 3 MG TAB PO PRN (21:01)
[2023-02-25] MEDS: QUEtiapine 25 MG TAB PO SCH (21:01)
[2023-02-25] MEDS: Acetaminophen 325 MG TAB PO PRN (21:02)
[2023-02-26 07:38] LABS: #Eosinphils 0.4 thou/uL (0.0-0.7); #Monocytes 0.7 thou/uL (0.11-0.59); #Neutrophils 3.2 thou/uL (1.40-6.50); %Basophils 0.7 % (0.0-1.0); %Eosinophils 7.7 % (0.0-10.0); %Lymphocytes 23.3 % (21.0-51.0); %Monocytes 12.5 % (0.0-10.0); %Neutrophils 55.3 % (42.0-75.0); Hematocrit 30.5 % (42.0-52.0); Mean Corpuscular HGB CONC 32.8 g/dL (32.0-36.0); Mean Corpuscular Hemoglobin 34.1 pg (27.0-31.0); Mean Corpuscular Volume 104.1 fl (78.0-98.0); Mean Platelet Volume 10.1 fL (7.4-10.4); Platelet Count 415 10x3/uL (130-400); RBC Distribution Width 13.1 % (11.5-14.5); Red Blood Cell (RBC) Count 2.93 mill/uL (4.70-6.10); White Blood Cell (WBC) Count 5.7 10x3/uL (4.8-10.8)
[2023-02-26 08:06] LABS: ALT (SGPT) 27 U/L (8-55); AST (SGOT) 28 U/L (5-34); Albumin 3.2 g/dL (3.4-4.8); Alkaline Phosphatase 51 U/L (40-110); Anion Gap 12 mmol/L (10-20); BUN (Urea Nitrogen) 12 mg/dL (8.4-25.7); Bilirubin, Total 0.2 mg/dL (0.2-1.2); Calc. Creatinine Clearance 88 mL/min (70-130); Calcium 8.9 mg/dL (7.8-10.44); Carbon Dioxide 25 mmol/L (23-31); Chloride 108 mmol/L (98-107); Estimated GFR 101; Globulin 2.4 g/dL (2.4-3.5); Glucose 83 mg/dL (80-115); Potassium 3.4 mmol/L (3.5-5.1); Protein, Total 5.6 g/dL (5.8-8.1); Sodium 142 mmol/L (136-145)
[2023-02-26] MEDS ORDERED: Potassium Chloride 20 MEQ TAB PO SCH (08:30)
[2023-02-26] MEDS: Folic Acid 1 MG TAB PO SCH (08:40)
[2023-02-26] MEDS: Multivit, Therapeutic 1 TAB PO SCH (08:40)
[2023-02-26] MEDS: Lisinopril 5 MG TAB PO SCH (08:41)
[2023-02-26] MEDS: Aspirin 81 mg Enteric Coated Tablet PO SCH (08:41)
[2023-02-26] MEDS: Acetaminophen 325 MG TAB PO PRN ×2 (08:51→20:07)
[2023-02-26] MEDS: Lorazepam 0.5 MG TAB PO PRN (15:18)
[2023-02-26] MEDS: Thiamine 100 MG TAB PO SCH (15:19)
[2023-02-26] MEDS: Montelukast Sodium 10 mg Tablet PO SCH (20:07)
[2023-02-26] MEDS: Melatonin 3 MG TAB PO PRN (20:07)
[2023-02-26] MEDS: QUEtiapine 25 MG TAB PO SCH (20:07)
[2023-02-27 06:21] LABS: #Basophils 0.1 thou/uL (0.0-0.2); #Eosinphils 0.4 thou/uL (0.0-0.7); #Monocytes 0.7 thou/uL (0.11-0.59); #Neutrophils 2.8 thou/uL (1.40-6.50); %Basophils 0.9 % (0.0-1.0); %Eosinophils 6.5 % (0.0-10.0); %Lymphocytes 26.7 % (21.0-51.0); %Monocytes 12.9 % (0.0-10.0); %Neutrophils 52.4 % (42.0-75.0); Hematocrit 30.9 % (42.0-52.0); Hemoglobin 10.1 g/dL (14.0-18.0); Mean Corpuscular HGB CONC 32.7 g/dL (32.0-36.0); Mean Platelet Volume 10.1 fL (7.4-10.4); Platelet Count 403 10x3/uL (130-400); RBC Distribution Width 13.2 % (11.5-14.5); Red Blood Cell (RBC) Count 2.97 mill/uL (4.70-6.10); White Blood Cell (WBC) Count 5.4 10x3/uL (4.8-10.8)
[2023-02-27 06:47] LABS: ALT (SGPT) 24 U/L (8-55); AST (SGOT) 18 U/L (5-34); Albumin 3.5 g/dL (3.4-4.8); Alkaline Phosphatase 52 U/L (40-110); Anion Gap 13 mmol/L (10-20); BUN (Urea Nitrogen) 12 mg/dL (8.4-25.7); Bilirubin, Total 0.2 mg/dL (0.2-1.2); Calc. Creatinine Clearance 75 mL/min (70-130); Carbon Dioxide 26 mmol/L (23-31); Chloride 109 mmol/L (98-107); Estimated GFR 97; Globulin 2.4 g/dL (2.4-3.5); Glucose 84 mg/dL (80-115); Potassium 3.7 mmol/L (3.5-5.1); Protein, Total 5.9 g/dL (5.8-8.1); Sodium 144 mmol/L (136-145)
[2023-02-27] MEDS: Acetaminophen 325 MG TAB PO PRN ×3 (08:06→19:17)
[2023-02-27] MEDS: Folic Acid 1 MG TAB PO SCH (08:07)
[2023-02-27] MEDS: Multivit, Therapeutic 1 TAB PO SCH (08:07)
[2023-02-27] MEDS: Aspirin 81 mg Enteric Coated Tablet PO SCH (08:07)
[2023-02-27] MEDS: Lisinopril 5 MG TAB PO SCH (08:07)
[2023-02-27] MEDS: Thiamine 100 MG TAB PO SCH (13:44)
[2023-02-27] MEDS: Lorazepam 0.5 MG TAB PO PRN (18:25)
[2023-02-27] MEDS: Montelukast Sodium 10 mg Tablet PO SCH (19:16)
[2023-02-27] MEDS: QUEtiapine 25 MG TAB PO SCH (19:16)
[2023-02-27] MEDS: Melatonin 3 MG TAB PO PRN (19:18)
[2023-02-28] MEDS: Lisinopril 5 MG TAB PO SCH (07:56)
[2023-02-28] MEDS: Multivit, Therapeutic 1 TAB PO SCH (07:56)
[2023-02-28] MEDS: Aspirin 81 mg Enteric Coated Tablet PO SCH (07:56)
[2023-02-28] MEDS: Folic Acid 1 MG TAB PO SCH (07:56)
[2023-02-28] MEDS: Thiamine 100 MG TAB PO SCH (13:57)
[2023-02-28] MEDS: Acetaminophen 325 MG TAB PO PRN ×2 (15:23→19:30)
[2023-02-28] MEDS: Lorazepam 0.5 MG TAB PO PRN (15:23)
[2023-02-28] MEDS: QUEtiapine 25 MG TAB PO SCH (19:28)
[2023-02-28] MEDS: Melatonin 3 MG TAB PO PRN (19:29)
[2023-02-28] MEDS: Montelukast Sodium 10 mg Tablet PO SCH (19:30)
[2023-03-01] MEDS: Lorazepam 0.5 MG TAB PO PRN (00:02)
[2023-03-01] MEDS: Folic Acid 1 MG TAB PO SCH (07:41)
[2023-03-01] MEDS: Aspirin 81 mg Enteric Coated Tablet PO SCH (07:41)
[2023-03-01] MEDS: Lisinopril 5 MG TAB PO SCH (07:41)
[2023-03-01] MEDS: Multivit, Therapeutic 1 TAB PO SCH (07:41)
[2023-03-01] MEDS: Acetaminophen 325 MG TAB PO PRN (14:02)
[2023-03-01] MEDS: Thiamine 100 MG TAB PO SCH (14:02)
[2023-03-01] MEDS: OLANZapine 5 MG TAB PO SCH (20:34)
[2023-03-01] MEDS: Montelukast Sodium 10 mg Tablet PO SCH (20:34)
[2023-03-01] MEDS: Melatonin 3 MG TAB PO PRN (20:34)
[2023-03-02] MEDS: Aspirin 81 mg Enteric Coated Tablet PO SCH (08:40)
[2023-03-02] MEDS: Multivit, Therapeutic 1 TAB PO SCH (08:41)
[2023-03-02] MEDS: Folic Acid 1 MG TAB PO SCH (08:41)
[2023-03-02] MEDS: Lisinopril 5 MG TAB PO SCH (08:41)
[2023-03-02] MEDS: Thiamine 100 MG TAB PO SCH (14:00)
[2023-03-02] MEDS: Montelukast Sodium 10 mg Tablet PO SCH (20:44)
[2023-03-02] MEDS: OLANZapine 5 MG TAB PO SCH (20:44)
[2023-03-02] MEDS: Melatonin 3 MG TAB PO PRN (20:44)
[2023-03-03] MEDS: Acetaminophen 325 MG TAB PO PRN (01:02)
[2023-03-03] MEDS: Lorazepam 0.5 MG TAB PO PRN ×2 (01:03→09:18)
[2023-03-03] MEDS: Multivit, Therapeutic 1 TAB PO SCH (08:22)
[2023-03-03] MEDS: Aspirin 81 mg Enteric Coated Tablet PO SCH (08:22)
[2023-03-03] MEDS: Folic Acid 1 MG TAB PO SCH (08:22)
[2023-03-03] MEDS: Lisinopril 5 MG TAB PO SCH (08:22)
[2023-03-03] MEDS ORDERED: Haloperidol Lactate 5 MG/ML VIAL IM SCH (12:00)
[2023-03-03] MEDS ORDERED: Lorazepam 2 MG/ML VIAL SLOW IVP PRN (12:15)
[2023-03-03] MEDS: ALPRAZolam 0.25 MG TAB PO PRN ×2 (12:34→20:06)
[2023-03-03] MEDS: Thiamine 100 MG TAB PO SCH (14:15)
[2023-03-03] MEDS: Montelukast Sodium 10 mg Tablet PO SCH (20:06)
[2023-03-03] MEDS: OLANZapine 5 MG TAB PO SCH (20:06)
[2023-03-04 07:29] VITALS: BP 123/75; TEMP 98.5
[2023-03-04] MEDS: Aspirin 81 mg Enteric Coated Tablet PO SCH (08:51)
[2023-03-04] MEDS: Multivit, Therapeutic 1 TAB PO SCH (08:51)
[2023-03-04] MEDS: Lisinopril 5 MG TAB PO SCH (08:51)
[2023-03-04] MEDS: Folic Acid 1 MG TAB PO SCH (08:51)
== END 2023-03-04 09:19 | DRG 897 ==
LOC: SUATTDRO 11:32 → ERS 11:32 → T4-A 18:01
PROVIDERS: ADMIT Internal Medicine; ATTEND Internal Medicine Critical Care Medicine
PROC: HZ2ZZZZ Detoxification Services for Substance Abuse Treatment (ICD-10-PCS; principal; 2023-03-04)
DX: F10.259 Alcohol dependence with alcohol-induced psychotic disorder, unspecified (principal); E44.0 Moderate protein-calorie malnutrition; Z68.1 Body mass index [BMI] 19.9 or less, adult; F10.27 Alcohol dependence with alcohol-induced persisting dementia; D64.9 Anemia, unspecified; D72.819 Decreased white blood cell count, unspecified; I10 Essential (primary) hypertension; R62.7 Adult failure to thrive; F17.210 Nicotine dependence, cigarettes, uncomplicated; G31.2 Degeneration of nervous system due to alcohol; F04 Amnestic disorder due to known physiological condition; E87.6 Hypokalemia; Z66 Do not resuscitate; F02.80 Dementia in other diseases classified elsewhere, unspecified severity, without behavioral disturbance, psychotic disturbance, mood disturbance, and anxiety; Z51.5 Encounter for palliative care; Z79.899 Other long term (current) drug therapy; Z90.89 Acquired absence of other organs; Z79.82 Long term (current) use of aspirin; G62.9 Polyneuropathy, unspecified; F10.229 Alcohol dependence with intoxication, unspecified
CPT/HCPCS: 36415; 70450; 80048; 80053; 80306; 80307; 81001; 82248; 83540; 83550; 83690; 83735; 84100; 84425; 84443; 84484; 85025; 87086; 93970; 96361; 96365; J1630; J1650; J2060; J3411; J3475; S0028